=== PATIENT | female | born 2000 | race Caucasian/White ===

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

== ENCOUNTER → 2019-06-02 | Outpatient (CLI) | payer BC | END | disposition home or self-care (01) | LOC: RAD 16:07 | PROVIDERS: ATTEND Internal Medicine | DX: S43.402A Unspecified sprain of left shoulder joint, initial encounter (principal); M77.9 Enthesopathy, unspecified; X58.XXXA Exposure to other specified factors, initial encounter; Y93.89 Activity, other specified; Y92.89 Other specified places as the place of occurrence of the external cause; Y99.8 Other external cause status | CPT/HCPCS: 73030 ==

== ENCOUNTER → 2019-12-06 | Outpatient (CLI) | payer BC ==
[2019-12-06 14:32] LABS: BASOPHILS % 1.1 % (0.0-2.0); EOSINOPHILS % 3.4 % (0.0-5.0); HEMATOCRIT. 39.5 % (36.0-48.0); HEMOGLOBIN. 13.7 g/dL (12.0-16.0); MEAN CORPUSCULAR HEMOGLOBIN 30.1 pg (28.0-32.0); MEAN CORPUSCULAR VOLUME 86.7 fL (81.0-99.0); MEAN PLATELET VOLUME 9.2 fl (7.4-10.4); MONOCYTES % 8.3 % (2.0-8.0); NEUTROPHILS % 66.2 % (40.0-76.0); PLATELET 230 x1000/uL (130-400); RED BLOOD CELL COUNT 4.56 mill/uL (4.2-5.4); RED CELL DISTRIBUTION WIDTH 11.9 % (11.6-14.6)
[2019-12-06 14:46] LABS: CHLORIDE 110 mEq/L (98-107)
[2019-12-06 14:53] LABS: LDL CHOLESTEROL 128 mg/dL (5-100)
[2019-12-06 14:54] LABS: HDL CHOLESTEROL 36 mg/dL (40-59)
[2019-12-06 14:58] LABS: T4 FREE 1.15 ng/dL (0.76-1.46)
== END | disposition home or self-care (01) ==
LOC: LAB 14:01
PROVIDERS: ATTEND Internal Medicine
DX: Z00.00 Encounter for general adult medical examination without abnormal findings (principal); Z13.1 Encounter for screening for diabetes mellitus; Z13.0 Encounter for screening for diseases of the blood and blood-forming organs and certain disorders involving the immune mechanism; Z13.29 Encounter for screening for other suspected endocrine disorder; Z13.220 Encounter for screening for lipoid disorders
CPT/HCPCS: 36415; 80053; 80061; 83036; 84439; 84443; 85025

== ENCOUNTER → 2020-08-30 | Outpatient (CLI) | payer BC ==
[2020-08-30 13:47] LABS: BASOPHILS % 0.8 % (0.0-2.0); EOSINOPHILS % 2.8 % (0.0-5.0); HEMATOCRIT. 42.1 % (36.0-48.0); HEMOGLOBIN. 14.2 g/dL (12.0-16.0); LYMPHOCYTES % 22.7 % (20.0-50.0); MEAN CORPUSCULAR HEMOGLOBIN 29.4 pg (28.0-32.0); MEAN CORPUSCULAR VOLUME 87.4 fL (81.0-99.0); MEAN PLATELET VOLUME 9.6 fl (7.4-10.4); MONOCYTES % 7.7 % (2.0-8.0); PLATELET 229 x1000/uL (130-400); RED BLOOD CELL COUNT 4.82 mill/uL (4.2-5.4); RED CELL DISTRIBUTION WIDTH 12.5 % (11.6-14.6)
[2020-08-30 13:54] LABS: CHLORIDE 108 mEq/L (98-107)
[2020-08-30 14:01] LABS: LDL CHOLESTEROL 129 mg/dL (5-100)
[2020-08-30 14:03] LABS: T4 FREE 1.08 ng/dL (0.76-1.46)
[2020-08-30 14:04] LABS: HDL CHOLESTEROL 35 mg/dL (40-59)
== END | disposition home or self-care (01) ==
LOC: LAB 12:57
PROVIDERS: ATTEND Internal Medicine
DX: Z00.00 Encounter for general adult medical examination without abnormal findings (principal); Z13.29 Encounter for screening for other suspected endocrine disorder; Z13.0 Encounter for screening for diseases of the blood and blood-forming organs and certain disorders involving the immune mechanism; Z13.220 Encounter for screening for lipoid disorders
CPT/HCPCS: 36415; 80053; 80061; 83036; 84439; 84443; 84481; 85025

== ENCOUNTER → 2021-12-31 | Outpatient (CLI) | payer BC ==
[2021-12-31 11:55] LABS: CLARITY URINE CLEAR (CLEAR); COLOR URINE YELLOW (YELLOW); KETONES URINE NEGATIVE (NEGATIVE); LEUKOCYTE ESTERASE URINE NEGATIVE (NEGATIVE); NITRITE URINE NEGATIVE (NEGATIVE); OCCULT BLOOD URINE NEGATIVE (NEGATIVE); PH URINE 6.5 (4.5-8.0); PROTEIN URINE NEGATIVE (NEGATIVE); SPECIFIC GRAVITY URINE 1.023 (1.005-1.030)
[2021-12-31 12:03] LABS: BASOPHILS % 1.1 % (0.0-2.0); HEMATOCRIT. 40.2 % (36.0-48.0); HEMOGLOBIN. 13.7 g/dL (12.0-16.0); LYMPHOCYTES % 18.8 % (20.0-50.0); MEAN CORPUSCULAR HEMOGLOBIN 30.1 pg (28.0-32.0); MEAN CORPUSCULAR VOLUME 88.2 fL (81.0-99.0); MEAN PLATELET VOLUME 9.7 fl (7.4-10.4); MONOCYTES % 7.9 % (2.0-8.0); NEUTROPHILS % 66.2 % (40.0-76.0); PLATELET 210 x1000/uL (130-400); RED BLOOD CELL COUNT 4.56 mill/uL (4.2-5.4); RED CELL DISTRIBUTION WIDTH 12.1 % (11.6-14.6)
[2021-12-31 12:07] LABS: CHLORIDE 109 mEq/L (98-107)
[2021-12-31 12:21] LABS: HDL CHOLESTEROL 37 mg/dL (40-59); LDL CHOLESTEROL 106 mg/dL (5-100); T4 FREE 1.01 ng/dL (0.76-1.46)
== END | disposition home or self-care (01) ==
LOC: LAB 11:27
PROVIDERS: ATTEND Internal Medicine
DX: Z00.00 Encounter for general adult medical examination without abnormal findings (principal); Z13.0 Encounter for screening for diseases of the blood and blood-forming organs and certain disorders involving the immune mechanism; Z13.1 Encounter for screening for diabetes mellitus; Z13.29 Encounter for screening for other suspected endocrine disorder; Z13.220 Encounter for screening for lipoid disorders; N39.0 Urinary tract infection, site not specified
CPT/HCPCS: 36415; 80053; 80061; 81003; 83036; 84439; 84443; 85025

== ENCOUNTER 2024-10-22 12:26 | Emergency (ER) | payer BC ==
[~2024-10-22] VITALS: Ht 185.4 cm; Wt 77.0 kg
[2024-10-22 12:31] VITALS: O2SAT 100
[2024-10-22 12:35] VITALS: TEMP 36.7; O2SAT 100
[2024-10-22 12:56] VITALS: BP 136/79; PULSE 78; RESP 18
[2024-10-22] MEDS: IBUPROFEN 400MG TABLET PO ONE (12:56)
[2024-10-22] MEDS ORDERED: LIDO700A30 TP (13:48)
[2024-10-22] MEDS: LIDOCAINE 5% PATCH TOP SCH (13:54)
[2024-10-22 13:55] LABS: CLARITY URINE CLEAR (CLEAR); COLOR URINE YELLOW (YELLOW); GLUCOSE URINE NEGATIVE (NEGATIVE); KETONES URINE NEGATIVE (NEGATIVE); LEUKOCYTE ESTERASE URINE NEGATIVE (NEGATIVE); NITRITE URINE NEGATIVE (NEGATIVE); OCCULT BLOOD URINE 1+ (NEGATIVE); PROTEIN URINE 2+ (NEGATIVE); SPECIFIC GRAVITY URINE 1.028 (1.005-1.030); UROBILINOGEN URINE 0.2 E.U./dL (0.2-1.0)
[2024-10-22] MEDS ORDERED: LIDOCAINE 5% PATCH TOP SCH (14:00)
[2024-10-22 14:09] LABS: MUCUS URINE 1+ /lpf (< = 2+); SQUAMOUS EPITHELIAL CELL URINE 3+ /lpf (RARE/1+)
[2024-10-22 14:10] LABS: BACTERIA URINE 1+
[2024-10-22 14:11] LABS: RBC URINE 0-2 /hpf (0-2)
[2024-10-22] MEDS ORDERED: NITR100C MT (14:54)
== END 2024-10-22 15:17 | disposition home or self-care (01) ==
LOC: ER 13:45
DX: G89.29 Other chronic pain (principal); M54.89 Other dorsalgia; N39.0 Urinary tract infection, site not specified; Z79.899 Other long term (current) drug therapy
CPT/HCPCS: 72100; 81003; 81025; 99284

== ENCOUNTER 2024-12-13 11:44 | Emergency (ER) | payer OTHER, BC ==
[~2024-12-13] VITALS: Ht 182.9 cm; Wt 75.0 kg
[~2024-12-13 11:44] MED LIST changes: -DEXT 5%/0.45% NACL KCL 20MEQ/L 1,000 ML IV SCH; +LIDO700A30 TP; +NITR100C MT
[2024-12-13 11:59] VITALS: O2SAT 100
[2024-12-13] MEDS: METHOCARBAMOL 500MG TABLET PO ONE (14:51)
[2024-12-13 14:52] VITALS: BP 114/76; PULSE 65; RESP 18; TEMP 36.6; O2SAT 100
[2024-12-13] MEDS ORDERED: LIDO700A30 TP (14:52)
[2024-12-13] MEDS ORDERED: METH-653 MT (14:52)
[2024-12-13] MEDS: IBUPROFEN 600MG TABLET PO ONE (14:52)
[2024-12-13] MEDS ORDERED: IBUP-1455 MT (14:52)
== END 2024-12-13 15:04 | disposition home or self-care (01) ==
LOC: ER 12:28
DX: S43.402A Unspecified sprain of left shoulder joint, initial encounter (principal); S20.219A Contusion of unspecified front wall of thorax, initial encounter; Z98.890 Other specified postprocedural states; V89.2XXA Person injured in unspecified motor-vehicle accident, traffic, initial encounter; Y92.410 Unspecified street and highway as the place of occurrence of the external cause; Y93.89 Activity, other specified; Y99.8 Other external cause status
CPT/HCPCS: 71101; 73030; 99284